=== PATIENT | female | born 1940 | race Caucasian/White ===

== ENCOUNTER 2023-11-24 08:30 | Emergency (ER) | payer MEDICARE, BC ==
[2023-11-24 09:37] LABS: INR-International Normal Ratio 1.1; Prothrombin Time 13.8 sec (12.0-14.7)
[2023-11-24 09:38] LABS: PTT 27.1 sec (22.9-36.1)
[2023-11-24 09:43] LABS: Anion Gap 13 mmol/L (10-20); BUN (Urea Nitrogen) 15 mg/dL (9.8-20.1); Calc. Creatinine Clearance 0 mL/min (70-130); Carbon Dioxide 20 mmol/L (23-31); Chloride 97 mmol/L (98-107); Estimated GFR 40; Glucose 103 mg/dL (83-110); Sodium 126 mmol/L (136-145)
[2023-11-24 09:46] LABS: Mean Corpuscular HGB CONC 32.8 g/dL (32.0-36.0); Mean Corpuscular Hemoglobin 31.8 pg (27.0-31.0); Mean Corpuscular Volume 97.1 fl (78.0-98.0); Red Blood Cell (RBC) Count 3.29 mill/uL (4.20-5.40); White Blood Cell (WBC) Count 6.2 10x3/uL (4.8-10.8)
[2023-11-24 09:47] LABS: Band 3 % (5-11); Eosinophils 1 % (0-10); Lymphocytes 14 % (21-51); MDiff Complete? YES; Manual Diff?? YES; Mean Platelet Volume 6.1 fL (7.4-10.4); Monocytes 6 % (0-10); Neutrophil 76 % (42-75); Platelet Count 194 10x3/uL (130-400); RBC Distribution Width 12.3 % (11.5-14.5)
[2023-11-24 09:48] LABS: Anisocytosis SLIGHT = 6-15 cells (100X) (0-5/hpf); Platelet Adequacy Comment Appears Adequate
[2023-11-24] MEDS ORDERED: Sodium Chloride 0.9% 500 ML ONE (10:04)
[2023-11-24] MEDS ORDERED: Orphenadrine Citrate 60 MG/2 ML VIAL ONE (10:19)
[2023-11-24 11:48] LABS: Phosphorus 2.7 mg/dL (2.3-4.7)
[2023-11-24 11:50] LABS: Magnesium 1.7 mg/dL (1.6-2.6)
[2023-11-24 11:56] LABS: Hematocrit 31.9 % (36.0-47.0); Hemoglobin 10.5 g/dL (12.0-16.0)
[2023-11-24 12:01] LABS: ALT (SGPT) 7 U/L (8-55); AST (SGOT) 10 U/L (5-34); Albumin 2.3 g/dL (3.4-4.8); Alkaline Phosphatase 32 U/L (40-110); Bilirubin, Direct 0.2 mg/dL (0.1-0.3); Bilirubin, Total 0.5 mg/dL (0.2-1.2); Protein, Total 4.1 g/dL (5.8-8.1)
[2023-11-24 12:05] LABS: Troponin I Less than 0.010 ng/mL (< 0.028)
[2023-11-24] MEDS ORDERED: Ondansetron PF 4 MG/2 ML Vial ONE (12:12)
== END 2023-11-24 13:35 | disposition short-term general hospital (02) ==
LOC: MADERS 08:30
DX: E87.1 Hypo-osmolality and hyponatremia (principal); I10 Essential (primary) hypertension; Z79.899 Other long term (current) drug therapy
CPT/HCPCS: 70450; 70486; 71045; 72125; 80048; 80076; 83735; 83930; 84100; 84443; 84484; 85025; 85610; 85730; 93005; 96372; 96374; J2360; J2405; J7030